=== PATIENT | female | born 1945 | race Caucasian/White ===

== ENCOUNTER → 2016-09-02 | Outpatient (CLI) | payer OTHER, MEDICARE | END | disposition home or self-care (01) | LOC: RAD 10:55 | DX: I71.2 Thoracic aortic aneurysm, without rupture (principal) | CPT/HCPCS: 71275 ==

== ENCOUNTER → 2017-09-03 | Outpatient (CLI) | payer OTHER, MEDICARE | END | disposition home or self-care (01) | LOC: RAD 12:48 | DX: I71.2 Thoracic aortic aneurysm, without rupture (principal) | CPT/HCPCS: 71275 ==

== ENCOUNTER → 2018-03-04 | Outpatient (CLI) | payer OTHER, MEDICARE | END | disposition home or self-care (01) | LOC: RAD 10:51 | DX: I71.2 Thoracic aortic aneurysm, without rupture (principal); Z95.2 Presence of prosthetic heart valve | CPT/HCPCS: 71260 ==